=== PATIENT | male | born 1950 | race Caucasian/White ===

== ENCOUNTER 2018-05-10 16:53 | Observation (INO) ==
[2018-05-10] MEDS ORDERED: ZOFRAN INJ 4 MG VIAL ONE (17:03)
[2018-05-10] MEDS ORDERED: ZOFRAN INJ 4 MG VIAL IVP ONE (17:04)
[2018-05-10 17:30] LABS: BASOPHILS # (AUTO) 0.1 X10^3/uL (0.0-0.1); BASOPHILS % (AUTO) 0.8 % (0.2-1.0); EOSINOPHILS # (AUTO) 0.1 x10^3/uL (0.0-0.2); EOSINOPHILS % (AUTO) 1.1 % (0.9-2.9); HEMATOCRIT 40.7 % (42.0-54.0); HEMOGLOBIN 14.4 g/dL (13.5-18.0); LYMPHOCYTES # (AUTO) 1.5 X10^3/uL (1.3-2.9); LYMPHOCYTES % (AUTO) 22.7 % (21.0-51.0); MEAN CORPUSCULAR HEMOGLOBIN 33.3 pg (27.0-34.0); MEAN CORPUSCULAR HGB CONC 35.3 g/dL (33.0-35.0); MEAN CORPUSCULAR VOLUME 94.2 fL (80.0-100.0); MEAN PLATELET VOLUME 7.9 fL (7.4-11.0); MONOCYTES # (AUTO) 0.7 x10^3/uL (0.3-0.8); MONOCYTES % (AUTO) 10.7 % (0.0-13.0); NEUTROPHILS # (AUTO) 4.2 x10^3/uL (2.2-4.8); NEUTROPHILS % (AUTO) 64.7 % (42.0-75.0); PLATELET COUNT 274 X10^3/uL (150.0-450.0); RED BLOOD COUNT 4.32 X10^6/uL (4.7-6.0); RED CELL DISTRIBUTION WIDTH 12.5 % (11.6-16.5); WHITE BLOOD COUNT 6.5 X10^3/uL (3.6-10.0)
[2018-05-10 17:38] LABS: BLOOD UREA NITROGEN 6 mg/dL (7-18); CALCIUM 9.3 mg/dL (8.5-10.1); CARBON DIOXIDE 30.9 mmol/L (21-32); CHLORIDE 103 mmol/L (98-107); COR NA(FOR HYPERGLY) 139 mmol/L (136-145); CREATININE 0.84 mg/dL (0.70-1.30); SODIUM 138 mmol/L (136-145); eGFR NON BLACK RACES > 60 (>60)
--- NOTE | 2018-05-10 19:10 | CT ---
HISTORY: Dizziness. Study: CT brain without contrast. Comparison: None. Technique: Multiple axial images of the brain were obtained from the skull base to the vertex without administra tion of IV contrast. Findings: There is an approximately 3 cm intraparenchymal mass within the right frontal lobe high co nvexity with surrounding vasogenic edema. A separate 18 mm mass is noted along the superior aspect of the anterior limb of the internal capsule on the right. There is mild mass effect on the right later al ventricle with minimal right to left shift measuring approximately 2 mm. Subcortical white matter hypoattenuation is noted in the right temporal lobe, left frontal lobe high convexity and right cereb ellum likely reflecting vasogenic edema related to additional lesions. Borden-white differentiation is maintained. There is no intraparenchymal hemorrhage. No extra-axial fluid collections are observed. T here is an air-fluid level present within the left maxillary sinus. The extracranial structures are g rossly unremarkable. IMPRESSION: Multiple intraparenchymal masses with associated vasogenic edema highly suspicious for metastatic dis ease. The largest mass is located in the right frontal lobe and measures approximately 3 cm. MR of th e brain with and without IV contrast is recommended for further evaluation. There is mild mass effect on the right lateral ventricle with right to left midline shift measuring 2 mm. There is no intraparenchymal hemorrhage. Air-fluid level within the left maxillary sinus. Clinical correlation for acute sinusitis is en campo Reported By:
--- NOTE | 2018-05-10 20:08 | DR.GENAD ---
HPI Time Seen Time Seen by Provider: 05/10/18 18:41 PCP Primary Care Physician: beltran in [place] Complaint/Symptoms Chief Complaint Doctors Comments: Patient presented to the ED with complaint of dizziness for a while and has taken meclizine w/o help. He admits to vertigo for several weeks or more. Chief Complaint:: pt stated he has been dizzy for a while and [place] [place] but it does not seem to work. pt stated he also is nauseated at this time. Source History Provided: Patient and Family Member Mode of Arrival Mode of Arrival: Ambulatory Timing Onset of Chief Complaint: 03/11/18 PMH PMH Past Medical History: Yes Past Medical History: Hypertension and Seizures Past Surgical History: Yes Surgical History: Abdominal Surgery Past Surgical History Comment: colon cancer Family History History of Family Medical Conditions: No Social History Does patient currently use any type of tobacco product: Yes Have you used tobacco products in the last 12 months: Yes Type of Tobacco Use: Cigarettes How many years tobacco product used: 45 Does any household member use tobacco: Yes Alcohol Use: None Do you use any recreational Drugs:: No Lives With: Family Lives Where: Home infectious screening In the last 2 months have you had wt loss of >10#?: NO Have you had fever, night sweats or hemotysis?: No Have you traveled outside the country in the last 6 months?: No Isolation: Standard PE Vital Signs Vitals: Temperature 97.6 F Pulse Rate [Left Brachial] 95 Pulse Rate 87 Respiratory Rate 20 Blood Pressure [Left Arm] 137/68 Blood Pressure 192/87 O2 Sat by Pulse Oximetry 93 General General Appearance: Alert and In No Apparent Distress Head Head Exam: Normal Inspection and Atraumatic Eyes Eye exam: Normal Appearance, PERRL and EOMI ENT ENT Exam: Normal Exam and Normal Oropharynx External Ear Exam: Normal External Inspection; negative Auricular Trauma TM/Canal Exam: Bilateral: Normal Nose Exam: Normal Nose Exam Mouth Exam: Normal Inspection; negative Drooling, Trismus, Lip Swelling, Tongue Elevation, Tongue Swelling, Laceration and Other Throat Exam: Normal Inspection, Tonsillar Erythema and Other; negative Tonsillomegaly, Tonsillar Exudate, R Peritonsillar Mass, L Peritonsillar Mass and Muffled Voice Neck Neck Exam: Normal Inspection and Full ROM; negative Tenderness Chest Chest Inspection: Normal Inspection and Symmetric Chest Wall Rise Respiratory Respiratory Exam: Normal Lung Sounds Bilat; negative Accessory Muscle Use, Prolonged Expiratory Phase and Respiratory Distress Respiratory Exam: Bilateral: Clear to Auscultation Cardiovascular Cardiovascular Exam: Regular Rate and Normal Rhythm Abdominal Exam Abdominal Exam: Normal Inspection and Normal Bowel Sounds Extremities Extremities Exam: Normal Inspection and Full ROM Back Back Exam: Normal Inspection and Full ROM Neurologic Neurological Exam: Alert, Oriented X3, CN II-XII Intact and Normal Gait Psychiatric Psychiatric Exam: Normal Affect and Normal Mood; negative Depressed Skin Skin Exam: Warm and Dry COURSE Consultation Called: 14:30 Consultation Comments: Patient discussed with Dr. Hamilton who agreed to admit for further evaluation and treatment. ROR Labs Reviewed Laboratory Results Reviewed?: Yes Result Diagrams: 05/10/18 17:22 05/10/18 17: Laboratory: WBC 6.5 X10^3/uL (3.6-10.0) 05/10/18 17: RBC 4.32 X10^6/uL (4.7-6.0) L 05/10/18 17:22 Hgb 14.4 g/dL (13.5-18.0) 05/10/18 17:22 Hct 40.7 % (42.0-54.0) L 05/10/18 17: MCV 94.2 fL (80.0-100.0) 05/10/18 17:22 MCH 33.3 pg (27.0-34.0) 05/10/18 17: MCHC 35.3 g/dL (33.0-35.0) H 05/10/18 17: RDW 12.5 % (11.6-16.5) 05/10/18 17:22 Plt Count 274 X10^3/uL (150.0-450.0) 05/10/18 17:22 MPV 7.9 fL (7.4-11.0) 05/10/18 17:22 Neut % (Auto) 64.7 % (42.0-75.0) 05/10/18 17:22 Lymph % (Auto) 22.7 % (21.0-51.0) 05/10/18 17:22 [place] % (Auto) 10.7 % (0.0-13.0) 05/10/18 17:22 Eos % (Auto) 1.1 % (0.9-2.9) 05/10/18 17:22 Baso % (Auto) 0.8 % (0.2-1.0) 05/10/18 17:22 Neut # (Auto) 4.2 x10^3/uL (2.2-4.8) 05/10/18 17:22 Lymph # (Auto) 1.5 X10^3/uL (1.3-2.9) 05/10/18 17:22 [place] # (Auto) 0.7 x10^3/uL (0.3-0.8) 05/10/18 17:22 Eos # (Auto) 0.1 x10^3/uL (0.0-0.2) 05/10/18 17:22 Baso # (Auto) 0.1 X10^3/uL (0.0-0.1) 05/10/18 17:22 Absolute Nucleated RBC 0.0 /100WBC 05/10/18 17:22 Sodium 138 mmol/L (136-145) 05/10/18 17:22 Corrected Sodium 139 mmol/L (136-145) 05/10/18 17:22 Potassium 4.0 mmol/L (3.5-5.1) 05/10/18 17:22 Chloride 103 mmol/L (98-107) 05/10/18 17:22 Carbon Dioxide 30.9 mmol/L (21-32) 05/10/18 17:22 BUN 6 mg/dL (7-18) L 05/10/18 17:22 Creatinine 0.84 mg/dL (0.70-1.30) 05/10/18 17:22 Est GFR (MDRD) Af Amer > 60 (>60) 05/10/18 17:22 Est GFR (MDRD) Non-Af > 60 (>60) 05/10/18 17:22 Glucose 128 mg/dL (65-99) H 05/10/18 17:22 Calcium 9.3 mg/dL (8.5-10.1) 05/10/18 17:22 C-Reactive Protein 1.60 mg/L (0-3.0) 05/10/18 17:22 Other Results Comments: CT Brain: There is an approximately 3cm intra-prenchymal mass within the right frontal lobe high convexity with surrounding vasogenic edema. A separate 18 mm mass is noted along the superior aspect of the anterior limb of the internalcapsule on the right. There is mild mass effect on the right lateral ventricle with minimal right to left shift-measuring appoximately 2mm. Subcortical white matter hypo-attenuation is notedin the right temporal lobe, left frontal lobe high convexity and right cerebellum likely reflecting vasogenic edema related to additional lesions. Borden-white differentatiation is maintained. There is no intraparenchymal hemorrhage. No extra-axial fluid collections are observed. There is an air-fluid level present within the left maxillary sinus. The extracranial structures are grossly unremarkable. Impression: Multiple intraparenchymal masses with associated vasogenic edema highly suspicious for metastatic disease. The largest mass is located in the right frontal lobe and measures approximately 3cm. MR of the brain with and w/ o contrast is recommended for further evaluation. Diagnosis Discharge Problem: Metastatic cancer to brain
[2018-05-10] MEDS: NICOTINE PATCH TD SCH (20:15)
[2018-05-10] MEDS ORDERED: DECADRON INJ IV ONE (21:44)
[2018-05-10] MEDS: KEPPRA TAB 500 MG PO SCH (22:04)
[2018-05-10] MEDS: BENADRYL CAP 50 MG PO SCH (22:04)
[2018-05-10] MEDS: PLETAL PO SCH (22:22)
[2018-05-11] MEDS: DECADRON INJ IV SCH ×4 (03:03→20:31)
[2018-05-11 05:27] LABS: BASOPHILS % (AUTO) 0.2 % (0.2-1.0); HEMATOCRIT 41.1 % (42.0-54.0); HEMOGLOBIN 14.5 g/dL (13.5-18.0); LYMPHOCYTES # (AUTO) 0.4 X10^3/uL (1.3-2.9); LYMPHOCYTES % (AUTO) 5.4 % (21.0-51.0); MEAN CORPUSCULAR HEMOGLOBIN 33.2 pg (27.0-34.0); MEAN CORPUSCULAR HGB CONC 35.3 g/dL (33.0-35.0); MEAN CORPUSCULAR VOLUME 94.1 fL (80.0-100.0); MEAN PLATELET VOLUME 8.7 fL (7.4-11.0); MONOCYTES # (AUTO) 0.1 x10^3/uL (0.3-0.8); MONOCYTES % (AUTO) 0.8 % (0.0-13.0); NEUTROPHILS # (AUTO) 6.7 x10^3/uL (2.2-4.8); NEUTROPHILS % (AUTO) 93.6 % (42.0-75.0); PLATELET COUNT 291 X10^3/uL (150.0-450.0); RED BLOOD COUNT 4.37 X10^6/uL (4.7-6.0); RED CELL DISTRIBUTION WIDTH 12.6 % (11.6-16.5); WHITE BLOOD COUNT 7.1 X10^3/uL (3.6-10.0)
[2018-05-11 05:48] LABS: ALANINE AMINOTRANSFERASE 17 Units/L (12-78); ALBUMIN 3.6 g/dL (3.4-5.0); ALKALINE PHOSPHATASE 117 Units/L (46-116); ASPARTATE AMINO TRANSFERASE 14 Units/L (15-37); BLOOD UREA NITROGEN 8 mg/dL (7-18); CALCIUM 9.2 mg/dL (8.5-10.1); CARBON DIOXIDE 27.3 mmol/L (21-32); CHLORIDE 101 mmol/L (98-107); COR NA(FOR HYPERGLY) 137 mmol/L (136-145); SODIUM 135 mmol/L (136-145); TOTAL PROTEIN 7.5 g/dL (6.4-8.2); eGFR NON BLACK RACES > 60 (>60)
[2018-05-11 06:06] LABS: BAND NEUTROPHILS % 2 % (0-10); PLATELET MORPHOLOGY COMMENT NORMAL (NORMAL)
--- NOTE | 2018-05-11 06:19 | RAD ---
HISTORY: Metastatic cancer Study: Chest AP portable Comparison: None Findings: The heart is within normal limits in size. The sonali are normal. The lung flowers are clear. No pleural effusions are identified. The bony thorax is unremarkable. IMPRESSION: No significant abnormality identified Reported By:
[2018-05-11] MEDS: VITAMIN B-12 PO SCH (08:28)
[2018-05-11] MEDS: NORVASC TAB 5 MG PO SCH (08:28)
[2018-05-11] MEDS: KEPPRA TAB 500 MG PO SCH ×2 (08:28→20:31)
[2018-05-11] MEDS: PLETAL PO SCH ×2 (08:29→21:19)
[2018-05-11] MEDS: LIPITOR TAB 20 MG PO SCH (08:29)
[2018-05-11] MEDS: VITAMIN D3 PO SCH (08:29)
[2018-05-11] MEDS: NICOTINE PATCH TD SCH (08:30)
--- NOTE | 2018-05-11 12:23 | MRI ---
HISTORY: Metastatic brain lesions, vertigo, difficulty balancing, history of colon cancer Study: MRI brain with and without contrast Comparison: CT performed on 05/10/2018 Technique: Multisequence, multiplanar imaging of the brain was performed both before and after the ad ministration of 13 cc MultiHance Findings: Imaging of the brain demonstrates multiple peripherally enhancing lesions throughout the supratentori al and infratentorial brain. The largest supratentorial mass measures approximately by 3.4 cm in graham sverse dimension by 2.3 cm in AP dimension by 2.5 cm in craniocaudal dimension. There is extensive campbell rrounding vasogenic edema as well as areas of central necrosis within the mass. The 2nd largest mass measures approximately 2.7 cm in AP dimension by 1.9 cm in transverse dimension by 1.8 cm in cranioca udal dimension and is located adjacent to the right caudate head. There is surrounding vasogenic cameron a, with mass effect upon the right lateral ventricle, which is mildly effaced. No significant midline shift is appreciated. Multiple smaller peripherally enhancing lesions are identified throughout the bilateral frontal and parietal lobes as well as within the occipital and temporal lobes. A few of the smaller lesions demonstrate a small amount of hemosiderin deposition, consistent with a small amount intratumoral hemorrhage. A few of the smaller lesions also demonstrates central necrosis. Within the right cerebellar hemisphere there is a rather large heterogeneously and peripherally enhancing mass which measures approximately 4.9 cm in AP dimension by 2.0 cm in transverse dimension by 2.8 cm in cr aniocaudal dimension. This mass extends to the cerebellar vermis and slightly into the right cerebell ar tonsil as well as also extends just anterior to the right internal auditory canal. There is extens catrachito vasogenic edema with mass effect upon, and effacement of, the 4th ventricle. Mass effect upon the medulla is noted as well. This right cerebellar mass demonstrates a small amount of intratumoral hem orrhage as well. These multiple supratentorial and infratentorial lesions are most consistent with in tracranial metastatic disease. A small focus of abnormal signal and enhancement is also identified wi thin the stacey, consistent with metastatic disease as well. The ventricles are not significantly dilat ed. No extra-axial fluid collection is identified. The basilar cisterns remain patent. The bilateral cerebellopontine angles remain patent as well. Diffusion-weighted images demonstrate minimal restrict ed diffusion along the periphery of several lesions but no restricted diffusion to suggest acute or e angelica subacute infarct. The midline structures are intact. Incidental note is made of an air-fluid lev el within the left maxillary sinus, a finding which can be seen in the setting of acute sinusitis. IMPRESSION: 1. Multiple enhancing lesions throughout the supratentorial and infratentorial brain, most consistent with metastatic disease. Many lesions demonstrate central necrosis as well as intratumoral hemorrhag e. Please see above discussion for complete details. Reported By:
[2018-05-11] MEDS ORDERED: TYLENOL SUPP 650 MG PR PRN (13:05)
[2018-05-11] MEDS: TYLENOL 325 MG TAB PO PRN ×2 (13:25→21:19)
[2018-05-11 13:58] VITALS: BMI 18.3
[2018-05-11] MEDS ORDERED: NS 100 ML IV 100 ML IV ONE (18:33)
--- NOTE | 2018-05-11 18:50 | DR.H&P ---
H&P - History & Physical for Day of: H&P Date: 05/10/18 - Chief Complaint Chief Complaint: BUI, DIZZINESS - History of Present Illness History of Present Illness: 67 WM ER ADMISSION WITH CO BUI WITH N/V, DIZZINESS WORSE FOR SEVERAL WEEKS. PREVIOUSLY SEEN NEUROLOGIST IN [place], STATES HE HAD NORMAL SCAN OF BRAIN ~3 MOS. PT HAS PMH OF COLON [id number] AND REFUSED CHEMOTHERAPY AT THAT TIME. PT REPORTS PREVIOUS SEIZURE EPISODE IN 2016. PT HAD ABNORMAL CT IN ER. PT ADMITTED FOR TREATMENT AND EVALUATION OF ACUTE ILLNESS, MRI BRAIN ORDERED R/O METASTATIC DISEASE - Past Medical History Past Medical History: Hypertension, Seizures Additional Medical History: HX COLON CA - Past Surgical History Surgical History: Abdominal Surgery - Family History Family Medical History: Cancer, Coronary Artery Disease - Social History Does patient currently use any type of tobacco product: Yes Have you used tobacco products in the last 12 months: Yes Type of Tobacco Use: Cigarettes How many years tobacco product used: 45 Does any household member use tobacco: Yes Alcohol Use: None Drug Use: None - Medications Home Medications: No Known Drug Allergies Allergy (Verified 05/10/18 16:54) CONTINUE taking the following medications amlodipine 1.5 tab PO DAILY 05/10/18 [History] atorvastatin 1.5 tab PO QDAY 05/10/18 [History] cholecalciferol (vitamin D3) 1 tab PO DAILY 05/10/18 [History] cilostazol 100 mg PO BID 05/10/18 [History] cyanocobalamin (vitamin B-12) 1,000 mcg PO QDAY 05/10/18 [History] diphenhydramine HCl 50 mg PO QHS 05/10/18 [History] levetiracetam 2 tab PO BID 05/10/18 [History] meclizine 25 mg PO TID PRN 05/10/18 [History] - Review of Systems Constitutional: Weakness Eyes: No Symptoms Reported ENT: No Symptoms Reported Respiratory: No Symptoms Reported Cardiovascular: No Symptoms Reported Gastrointestinal: Nausea, Vomiting Genitourinary: No Symptoms Reported Skin: No Symptoms Reported Neurological: Weakness, Seizures, Other (BUI, DIZZINESS) - Physical Exam Vital Signs: Temperature 98.1 F Pulse Rate [Left Brachial] 103 Pulse Rate 87 Respiratory Rate 20 Blood Pressure [Left Arm] 130/60 Blood Pressure 192/87 O2 Sat by Pulse Oximetry 92 Oriented: Normal Eyes: Normal Ear: Normal Nose: Normal Throat: Normal Respiratory: RLL Diminished, LLL Diminished : Normal Auscultation: Bowel Sounds: Normal Palpation: Normal Tenderness: Normal Skin: Normal Musculoskeletal: Normal Psychiatric: Anxiety Affect: Anxious Speech Pattern: Clear, Appropriate - Assessment/Plan (1) Intractable headache Status: Acute Plan: ABNORMAL CT HEAD, MRI FOR Q AM. VERIFY HOME MEDS, ADMISSION LABS. PAIN AND NAUSEA CONTROL. BP MONITORING (2) Metastatic cancer to brain Status: Acute - Allergies Allergies/Adverse Reactions: Allergies Allergy/AdvReac Type Severity Reaction Status Date / Time No Known Drug Allergies Allergy Verified 05/10/18 16:54
[2018-05-11 20:03] LABS: FREE T4 (FREE THYROXINE) 1.15 ng/dL (0.76-1.46); TSH (3RD GENERATION) 0.851 uIU/mL (0.358-3.74)
[2018-05-11] MEDS: BENADRYL CAP 50 MG PO SCH (20:32)
--- NOTE | 2018-05-11 22:24 | CT ---
CT chest with contrast CT abdomen and pelvis with contrast Indication: Colon cancer. History of metastatic brain lesions Comparison: 05/11/2018 MR brain and 05/10/2018 CT head Technique: Helical images through the chest, abdomen and pelvis after IV contrast. Coronal and sagitt al reformats provided. Findings: Review of bone windows demonstrates no destructive osseous lesion. Minimal wedging at T6 no sunita there Chest: Aortic arch and branch vessels are patent with minimal plaque. Heart size is enlarged. Coronar y artery calcifications noted. Pulmonary artery bolus timing is adequate without large central or seg mental pulmonary artery filling defect identified. There is no pneumothorax or effusion. There is sca rring and dependent atelectasis in the lung bases. There is mucous plugging in right lower lobe bronchi as well as the left lower lobe bronchi see axial image 40 through 49. Shotty mediastinal lymph nodes noted. Abdomen: The liver, gallbladder, spleen, pancreas, adrenal glands, stomach and small bowel are normal . Kidneys show no acute abnormality. Extensive aortic soft plaque causing significant intraluminal st enosis at the infrarenal abdominal aorta noted. Branch vessel plaque noted. High-grade stenosis of th e right common iliac artery and complete occlusion of the left common iliac artery noted. The bilater al external iliac arteries appear occluded, with dense calcification in the internal iliac arteries. Reconstituted flow is seen via pelvic and abdominal wall collaterals and lumbar vessels. Postsurgical change of the sigmoid colon without large colonic mass identified. Pelvis: The urinary bladder and rectum are normal. Prostate gland is normal. Impression: 1. Cardiomegaly and chronic lung changes with endobronchial filling defects in the bilateral lower lo be bronchi, suggesting mucous plugging. Underlying lesion not completely excluded. Endobronchial foll ow-up may be needed in no other source for the patient's foramen static disease identified 2. Vascular plaque with occlusion of the bilateral common iliac and external iliac artery is 1 recons titution. 3. No abdominal mass lesion identified. Reported By:
[2018-05-12] MEDS: DECADRON INJ IV SCH ×4 (02:24→20:57)
[2018-05-12 05:31] LABS: ALANINE AMINOTRANSFERASE 18 Units/L (12-78); ALBUMIN 3.4 g/dL (3.4-5.0); ALKALINE PHOSPHATASE 98 Units/L (46-116); ASPARTATE AMINO TRANSFERASE 11 Units/L (15-37); BLOOD UREA NITROGEN 10 mg/dL (7-18); CALCIUM 9.4 mg/dL (8.5-10.1); CARBON DIOXIDE 27.3 mmol/L (21-32); CHLORIDE 102 mmol/L (98-107); CHOL/HDL RATIO 2.3 (0.0-5.0); CHOLESTEROL 108 mg/dL (0-200); COR NA(FOR HYPERGLY) 139 mmol/L (136-145); CREATININE 0.83 mg/dL (0.70-1.30); HDL CHOLESTEROL 48 mg/dL (40-60); SODIUM 138 mmol/L (136-145); TRIGLYCERIDES 54 mg/dL (0-150); eGFR NON BLACK RACES > 60 (>60)
[2018-05-12 06:17] LABS: BASOPHILS # (AUTO) 0.1 X10^3/uL (0.0-0.1); BASOPHILS % (AUTO) 0.4 % (0.2-1.0); EOSINOPHILS % (AUTO) 0.1 % (0.9-2.9); HEMATOCRIT 38.6 % (42.0-54.0); HEMOGLOBIN 13.6 g/dL (13.5-18.0); LYMPHOCYTES # (AUTO) 0.6 X10^3/uL (1.3-2.9); LYMPHOCYTES % (AUTO) 3.2 % (21.0-51.0); MEAN CORPUSCULAR HGB CONC 35.2 g/dL (33.0-35.0); MEAN CORPUSCULAR VOLUME 93.9 fL (80.0-100.0); MEAN PLATELET VOLUME 8.2 fL (7.4-11.0); MONOCYTES # (AUTO) 0.4 x10^3/uL (0.3-0.8); MONOCYTES % (AUTO) 2.5 % (0.0-13.0); NEUTROPHILS # (AUTO) 16.6 x10^3/uL (2.2-4.8); NEUTROPHILS % (AUTO) 93.8 % (42.0-75.0); PLATELET COUNT 286 X10^3/uL (150.0-450.0); RED CELL DISTRIBUTION WIDTH 12.5 % (11.6-16.5); WHITE BLOOD COUNT 17.7 X10^3/uL (3.6-10.0)
[2018-05-12 06:59] LABS: PLATELET MORPHOLOGY COMMENT NORMAL (NORMAL)
[2018-05-12] MEDS: NICOTINE PATCH TD SCH (08:13)
[2018-05-12] MEDS: LIPITOR TAB 20 MG PO SCH (08:14)
[2018-05-12] MEDS: KEPPRA TAB 500 MG PO SCH ×2 (08:15→20:56)
[2018-05-12] MEDS: NORVASC TAB 5 MG PO SCH (08:16)
[2018-05-12] MEDS: VITAMIN D3 PO SCH (08:16)
[2018-05-12] MEDS: VITAMIN B-12 PO SCH (08:16)
[2018-05-12] MEDS: PLETAL PO SCH ×2 (08:17→20:57)
[2018-05-12] MEDS: TYLENOL 325 MG TAB PO PRN ×2 (08:23→13:13)
[2018-05-12] MEDS ORDERED: NORCO 10/325 TAB PO PRN (13:25)
--- NOTE | 2018-05-12 13:30 | PCM.PROG ---
Progress Note - Progress Note for Day of Date of Exam: 05/12/18 - Subjective Subjective: 67 WM ER ADMISSION ON 05/11 WITH INTRACTABLE BUI, DIZZINESS, N/V WITH ABNORMAL BRAIN CT AND MRI SUGGESTING METASTATIC BRAIN DISEASE. PT CONTINUE TO CO HEADACHES, NOT RELIEVED WITH TYLENOL. PT STARTED ON DECADRON ON 05/11. PT NPO FOR CT CHEST ABD/PELVIS WITH CONTRAST. PSA TSH AND FREE T 4 RESULTS REVIEWED ALONG WITH MRI WITH PT AND FAMILY. PT AND FAMILY AGREES FOR TRANSFER FOR RADIATION THERAPY, SPECIALTY CARE. - Past Medical Family Social History Past Med/Fam/Surg Hx: No changes since H&P Allergies: Allergies No Known Drug Allergies Allergy (Verified 05/10/18 16:54) - Review of Systems ROS: No change since H&P - Vital Signs and I&O's Vital Signs: Temperature 98.0 F Pulse Rate [Left Brachial] 109 Pulse Rate 87 Respiratory Rate 20 Blood Pressure [Left Arm] 124/58 Blood Pressure 192/87 O2 Sat by Pulse Oximetry 92 Intake and Output: Intake & Output 05/10/18 05/11/18 05/12/18 05/13/18 11:59 11:59 11:59 11:59 Intake Total 1720 / 1720 1030 / 1030 Output Total 0 / 0 Balance 1720 / 1720 1030 / 1030 - Physical Exam Oriented: Normal Eyes: Normal Ear: Normal Nose: Normal Throat: Normal Respiratory: Diminished : Normal Auscultation: Bowel Sounds: Normal Tenderness: Normal Skin: Normal Musculoskeletal: Normal Psychiatric: Anxiety Affect: Anxious Speech Pattern: Clear, Appropriate - Laboratory and Diagnostics Result Diagrams: 05/12/18 06:06 05/12/18 04:17 Labs: Laboratory WBC 17.7 X10^3/uL (3.6-10.0) H D 05/12/18 06:06 RBC 4.10 X10^6/uL (4.7-6.0) L 05/12/18 06:06 Hgb 13.6 g/dL (13.5-18.0) 05/12/18 06:06 Hct 38.6 % (42.0-54.0) L 05/12/18 06:06 MCV 93.9 fL (80.0-100.0) 05/12/18 06:06 MCH 33.0 pg (27.0-34.0) 05/12/18 06:06 MCHC 35.2 g/dL (33.0-35.0) H 05/12/18 06:06 RDW 12.5 % (11.6-16.5) 05/12/18 06:06 Plt Count 286 X10^3/uL (150.0-450.0) 05/12/18 06:06 Plt Count Comment Adequate (ADEQUATE) 05/12/18 06:06 MPV 8.2 fL (7.4-11.0) 05/12/18 06:06 Neut % (Auto) 93.8 % (42.0-75.0) H 05/12/18 06:06 Lymph % (Auto) 3.2 % (21.0-51.0) L 05/12/18 06:06 [place] % (Auto) 2.5 % (0.0-13.0) 05/12/18 06:06 Eos % (Auto) 0.1 % (0.9-2.9) L 05/12/18 06:06 Baso % (Auto) 0.4 % (0.2-1.0) 05/12/18 06:06 Neut # (Auto) 16.6 x10^3/uL (2.2-4.8) H 05/12/18 06:06 Lymph # (Auto) 0.6 X10^3/uL (1.3-2.9) L 05/12/18 06:06 [place] # (Auto) 0.4 x10^3/uL (0.3-0.8) 05/12/18 06:06 Eos # (Auto) 0.0 x10^3/uL (0.0-0.2) 05/12/18 06:06 Baso # (Auto) 0.1 X10^3/uL (0.0-0.1) 05/12/18 06:06 Absolute Nucleated RBC 0.0 /100WBC 05/12/18 06:06 Total Counted 100 05/12/18 06:06 Neutrophils % (Manual) 91 % (39-76) H 05/12/18 06:06 Band Neutrophils % 2 % (0-10) 05/11/18 04:25 Lymphocytes % (Manual) 8 % (13-43) L 05/12/18 06:06 Monocytes % (Manual) 1 % (4-9) L 05/12/18 06:06 Plt Morphology Comment Normal (NORMAL) 05/12/18 06:06 RBC Morphology Normal (NORMAL) 05/12/18 06:06 Sodium 138 mmol/L (136-145) 05/12/18 04:17 Corrected Sodium 139 mmol/L (136-145) 05/12/18 04:17 Potassium 4.3 mmol/L (3.5-5.1) 05/12/18 04:17 Chloride 102 mmol/L (98-107) 05/12/18 04:17 Carbon Dioxide 27.3 mmol/L (21-32) 05/12/18 04:17 BUN 10 mg/dL (7-18) 05/12/18 04:17 Creatinine 0.83 mg/dL (0.70-1.30) 05/12/18 04:17 Est GFR (MDRD) Af Amer > 60 (>60) 05/12/18 04:17 Est GFR (MDRD) Non-Af > 60 (>60) 05/12/18 04:17 Glucose 133 mg/dL (65-99) H 05/12/18 04:17 Calcium 9.4 mg/dL (8.5-10.1) 05/12/18 04:17 Corrected Calcium TNP 05/12/18 04:17 Total Bilirubin 0.30 mg/dL (0.2-1.0) 05/12/18 04:17 AST 11 Units/L (15-37) L 05/12/18 04:17 ALT 18 Units/L (12-78) 05/12/18 04:17 Alkaline Phosphatase 98 Units/L (46-116) 05/12/18 04:17 C-Reactive Protein 1.60 mg/L (0-3.0) 05/10/18 17:22 Total Protein 7.0 g/dL (6.4-8.2) 05/12/18 04:17 Albumin 3.4 g/dL (3.4-5.0) 05/12/18 04:17 Globulin 3.6 g/dL (2.5-4.5) 05/12/18 04:17 Albumin/Globulin Ratio 0.9 Ratio (1.1-2.1) L 05/12/18 04:17 Triglycerides 54 mg/dL (0-150) 05/12/18 04:17 Cholesterol 108 mg/dL (0-200) 05/12/18 04:17 LDL Cholesterol, Calc 49 mg/dL (0-100) 05/12/18 04:17 HDL Cholesterol 48 mg/dL (40-60) 05/12/18 04:17 Cholesterol/HDL Ratio 2.3 (0.0-5.0) 05/12/18 04:17 Free PSA Cancelled 05/11/18 04:25 % Free PSA Calc Cancelled 05/11/18 04:25 Total PSA 0.44 ng/mL (0.13-4.0) 05/11/18 20:36 Free T4 1.15 ng/dL (0.76-1.46) 05/11/18 04:25 TSH 3rd Generation 0.851 uIU/mL (0.358-3.74) 05/11/18 04:25 - Plan (1) Intractable headache Status: Acute Plan: ABNORMAL CT HEAD, MRI RESULTS CONFIRMING METASTATIC DISEASE. STARTED ON DECADRON, PAIN AND NAUSEA CONTROL. PSA, TSH, FREE T 4 FLP COLLECTED. DISCUSSED PLAN FOR TRANSFER WITH PT AND FAMILY FOR SPECIALTY CARE. PAIN AND NAUSEA CONTROL. BP MONITORING (2) Metastatic cancer to brain Status: Acute
[2018-05-12] MEDS: MAALOX or MYLANTA PO PRN ×2 (17:46→23:38)
[2018-05-12] MEDS: BENADRYL CAP 50 MG PO SCH (20:56)
[2018-05-13] MEDS: DECADRON INJ IV SCH ×2 (02:49→08:49)
[2018-05-13 05:22] LABS: BASOPHILS % (AUTO) 0.2 % (0.2-1.0); HEMATOCRIT 36.8 % (42.0-54.0); HEMOGLOBIN 12.6 g/dL (13.5-18.0); LYMPHOCYTES # (AUTO) 0.5 X10^3/uL (1.3-2.9); LYMPHOCYTES % (AUTO) 2.9 % (21.0-51.0); MEAN CORPUSCULAR HEMOGLOBIN 32.5 pg (27.0-34.0); MEAN CORPUSCULAR HGB CONC 34.2 g/dL (33.0-35.0); MEAN PLATELET VOLUME 8.5 fL (7.4-11.0); MONOCYTES # (AUTO) 1.1 x10^3/uL (0.3-0.8); MONOCYTES % (AUTO) 6.4 % (0.0-13.0); NEUTROPHILS # (AUTO) 16.3 x10^3/uL (2.2-4.8); NEUTROPHILS % (AUTO) 90.5 % (42.0-75.0); PLATELET COUNT 266 X10^3/uL (150.0-450.0); RED BLOOD COUNT 3.87 X10^6/uL (4.7-6.0); RED CELL DISTRIBUTION WIDTH 12.8 % (11.6-16.5)
[2018-05-13 05:31] LABS: ALANINE AMINOTRANSFERASE 28 Units/L (12-78); ALBUMIN 3.2 g/dL (3.4-5.0); ALKALINE PHOSPHATASE 88 Units/L (46-116); ASPARTATE AMINO TRANSFERASE 16 Units/L (15-37); BLOOD UREA NITROGEN 13 mg/dL (7-18); CALCIUM 9.1 mg/dL (8.5-10.1); CARBON DIOXIDE 29.8 mmol/L (21-32); CHLORIDE 104 mmol/L (98-107); COR CA(FOR HYPOALB) 9.7 mg/dL (8.5-10.1); COR NA(FOR HYPERGLY) 140 mmol/L (136-145); CREATININE 0.78 mg/dL (0.70-1.30); SODIUM 139 mmol/L (136-145); TOTAL PROTEIN 6.6 g/dL (6.4-8.2); eGFR NON BLACK RACES > 60 (>60)
[2018-05-13 05:49] LABS: PLATELET MORPHOLOGY COMMENT NORMAL (NORMAL)
[2018-05-13] MEDS: VITAMIN D3 PO SCH (08:47)
[2018-05-13] MEDS: NORVASC TAB 5 MG PO SCH (08:47)
[2018-05-13] MEDS: KEPPRA TAB 500 MG PO SCH (08:48)
[2018-05-13] MEDS: LIPITOR TAB 20 MG PO SCH (08:48)
[2018-05-13] MEDS: NICOTINE PATCH TD SCH (08:49)
[2018-05-13] MEDS: VITAMIN B-12 PO SCH (08:49)
[2018-05-13] MEDS: PLETAL PO SCH (09:07)
[2018-05-13 12:04] VITALS: BP 139/66
--- NOTE | 2018-05-31 17:37 | PCM.DCPLAN ---
Discharge Summary - Admission Date Date of Admission: 05/10/18 - Discharge Date Discharge Date: 05/13/18 - Admission Diagnoses (1) Intractable headache Status: Acute (2) Metastatic cancer to brain Status: Acute - Discharge Diagnoses Discharge Diagnosis: SAME ADMISSION DIAGNOSIS - Discharge Medications Discharge Medications: Home Medication List amlodipine 1.5 tab PO DAILY 05/10/18 [History] atorvastatin 1.5 tab PO QDAY 05/10/18 [History] cholecalciferol (vitamin D3) 1 tab PO DAILY 05/10/18 [History] cilostazol 100 mg PO BID 05/10/18 [History] cyanocobalamin (vitamin B-12) 1,000 mcg PO QDAY 05/10/18 [History] diphenhydramine HCl 50 mg PO QHS 05/10/18 [History] levetiracetam 2 tab PO BID 05/10/18 [History] meclizine 25 mg PO TID PRN 05/10/18 [History] Prescriptions: - Hospital Course Vital Signs: Temperature 98.4 F Pulse Rate [Left Brachial] 105 Pulse Rate 87 Respiratory Rate 18 Blood Pressure [Left Arm] 139/66 Blood Pressure 192/87 O2 Sat by Pulse Oximetry 96 Latest Lab Results: Laboratory Last Values WBC 18.0 X10^3/uL (3.6-10.0) H 05/13/18 04:08 RBC 3.87 X10^6/uL (4.7-6.0) L 05/13/18 04:08 Hgb 12.6 g/dL (13.5-18.0) L 05/13/18 04:08 Hct 36.8 % (42.0-54.0) L 05/13/18 04:08 MCV 95.0 fL (80.0-100.0) 05/13/18 04:08 MCH 32.5 pg (27.0-34.0) 05/13/18 04:08 MCHC 34.2 g/dL (33.0-35.0) 05/13/18 04:08 RDW 12.8 % (11.6-16.5) 05/13/18 04:08 Plt Count 266 X10^3/uL (150.0-450.0) 05/13/18 04:08 Plt Count Comment Adequate (ADEQUATE) 05/13/18 04:08 MPV 8.5 fL (7.4-11.0) 05/13/18 04:08 Neut % (Auto) 90.5 % (42.0-75.0) H 05/13/18 04:08 Lymph % (Auto) 2.9 % (21.0-51.0) L 05/13/18 04:08 [place] % (Auto) 6.4 % (0.0-13.0) 05/13/18 04:08 Eos % (Auto) 0.0 % (0.9-2.9) L 05/13/18 04:08 Baso % (Auto) 0.2 % (0.2-1.0) 05/13/18 04:08 Neut # (Auto) 16.3 x10^3/uL (2.2-4.8) H 05/13/18 04:08 Lymph # (Auto) 0.5 X10^3/uL (1.3-2.9) L 05/13/18 04:08 [place] # (Auto) 1.1 x10^3/uL (0.3-0.8) H 05/13/18 04:08 Eos # (Auto) 0.0 x10^3/uL (0.0-0.2) 05/13/18 04:08 Baso # (Auto) 0.0 X10^3/uL (0.0-0.1) 05/13/18 04:08 Absolute Nucleated RBC 0.0 /100WBC 05/13/18 04:08 Total Counted 100 05/13/18 04:08 Neutrophils % (Manual) 92 % (39-76) H 05/13/18 04:08 Band Neutrophils % 2 % (0-10) 05/11/18 04:25 Lymphocytes % (Manual) 4 % (13-43) L 05/13/18 04:08 Monocytes % (Manual) 4 % (4-9) 05/13/18 04:08 Plt Morphology Comment Normal (NORMAL) 05/13/18 04:08 RBC Morphology Normal (NORMAL) 05/13/18 04:08 Sodium 139 mmol/L (136-145) 05/13/18 04:08 Corrected Sodium 140 mmol/L (136-145) 05/13/18 04:08 Potassium 3.8 mmol/L (3.5-5.1) 05/13/18 04:08 Chloride 104 mmol/L (98-107) 05/13/18 04:08 Carbon Dioxide 29.8 mmol/L (21-32) 05/13/18 04:08 BUN 13 mg/dL (7-18) 05/13/18 04:08 Creatinine 0.78 mg/dL (0.70-1.30) 05/13/18 04:08 Est GFR (MDRD) Af Amer > 60 (>60) 05/13/18 04:08 Est GFR (MDRD) Non-Af > 60 (>60) 05/13/18 04:08 Glucose 121 mg/dL (65-99) H 05/13/18 04:08 Calcium 9.1 mg/dL (8.5-10.1) 05/13/18 04:08 Corrected Calcium 9.7 mg/dL (8.5-10.1) 05/13/18 04:08 Total Bilirubin 0.20 mg/dL (0.2-1.0) 05/13/18 04:08 AST 16 Units/L (15-37) 05/13/18 04:08 ALT 28 Units/L (12-78) 05/13/18 04:08 Alkaline Phosphatase 88 Units/L (46-116) 05/13/18 04:08 C-Reactive Protein 1.60 mg/L (0-3.0) 05/10/18 17:22 Total Protein 6.6 g/dL (6.4-8.2) 05/13/18 04:08 Albumin 3.2 g/dL (3.4-5.0) L 05/13/18 04:08 Globulin 3.4 g/dL (2.5-4.5) 05/13/18 04:08 Albumin/Globulin Ratio 0.9 Ratio (1.1-2.1) L 05/13/18 04:08 Triglycerides 54 mg/dL (0-150) 05/12/18 04:17 Cholesterol 108 mg/dL (0-200) 05/12/18 04:17 LDL Cholesterol, Calc 49 mg/dL (0-100) 05/12/18 04:17 HDL Cholesterol 48 mg/dL (40-60) 05/12/18 04:17 Cholesterol/HDL Ratio 2.3 (0.0-5.0) 05/12/18 04:17 Carcinoembryonic Ag 582.8 ng/mL (0.0-3.0) H 05/11/18 04:25 Free PSA Cancelled 05/11/18 04:25 % Free PSA Calc Cancelled 05/11/18 04:25 Total PSA 0.44 ng/mL (0.13-4.0) 05/11/18 20:36 Free T4 1.15 ng/dL (0.76-1.46) 05/11/18 04:25 TSH 3rd Generation 0.851 uIU/mL (0.358-3.74) 05/11/18 04:25 Hospital Course: 67 WM ER ADMISSION ON 05/11 WITH INTRACTABLE BUI, DIZZINESS, N/V WITH ABNORMAL BRAIN CT AND MRI SUGGESTING METASTATIC BRAIN DISEASE. PT CONTINUE TO CO HEADACHES, NOT RELIEVED WITH TYLENOL. PT STARTED ON DECADRON ON 05/11. PT NPO FOR CT CHEST ABD/PELVIS WITH CONTRAST. PSA TSH AND FREE T 4 RESULTS REVIEWED ALONG WITH MRI WITH PT AND FAMILY. PT AND FAMILY AGREES FOR TRANSFER FOR RADIATION THERAPY, SPECIALTY CARE. PATIENT TRANSFERRED TO [facility] FOR FURTHER CARE. - Discharge Plan Disposition: [facility] Condition: Stable - Follow ups/Referrals Follow ups/Referrals: [facility] [Other] (PT TRANSFERRED VIA EMS FOR CARE) - Instructions
== END 2018-05-13 13:04 | disposition short-term general hospital (02) ==
LOC: MED/SURG 16:53 → ER 16:53 → MED/SURG 21:17
PROVIDERS: ADMIT Internal Medicine; ATTEND Internal Medicine
DX: R51 Headache; Z85.038 Personal history of other malignant neoplasm of large intestine; R42 Dizziness and giddiness; G40.89 Other seizures; R11.2 Nausea with vomiting, unspecified; R26.89 Other abnormalities of gait and mobility; I10 Essential (primary) hypertension; C79.31 Secondary malignant neoplasm of brain; R94.31 Abnormal electrocardiogram [ECG] [EKG]
CPT/HCPCS: 36415; 70450; 70553; 71010; 71045; 71260; 74177; 80048; 80053; 80061; 82378; 84153; 84439; 84443; 85025; 86140; 93005; 93010; 96365; 96374; 97116; 97162; 97167; 99218; 99284; G0378; J1100; J2405; J3490; J7050